=== PATIENT | male | born 1990 | race Two or more races ===

== ENCOUNTER 2022-05-22 19:52 | Emergency (ER) | payer MEDICAID, OTHER ==
[~2022-05-22] VITALS: Ht 180.3 cm; Wt 95.4 kg
[2022-05-22] MEDS ORDERED: SODIUM CHLORIDE 0.9% 1,000 ML IV ONE (20:30)
[2022-05-22 21:04] LABS: Basophils # (auto) 0.1 10 ^3/uL (0-0.2); Basophils % (auto) 0.6 % (0.0-2.0); Eosinophils # (auto) 0.2 10 ^3/uL (0-0.8); Eosinophils % (auto) 2.6 % (0.0-7.0); Hematocrit 47.7 % (41.0-53.0); Hemoglobin 15.9 g/dL (13.5-17.5); Lymphocytes % (auto) 32.8 % (10.0-50.0); Mean Corpuscular Hemoglobin 27.9 pg (28.0-32.0); Mean Corpuscular Hgb Conc. 33.2 g/dL (32.0-36.0); Mean Corpuscular Volume 83.9 fL (80.0-100.0); Monocytes # (auto) 0.6 10 ^3/uL (0-1.3); Neutrophils # (auto) 5.2 10 ^3/uL (1.6-8.6); Nucleated Red Blood Cells % 0.1 %; Red Blood Cells 5.69 10^6/uL (4.5-5.90); White Blood Cell 9.1 10^3/uL (4.4-10.8)
[2022-05-22 21:08] LABS: Urine Bacteria NONE SEEN /hpf (None Seen); Urine Blood Negative /uL (Negative); Urine Specific Gravity 1.033 (1.001-1.035); Urine WBC 12 /hpf (0 - 3)
[2022-05-22 21:23] LABS: Calcium 8.6 mg/dL (8.5-10.1); Potassium 3.9 mmol/L (3.5-5.1)
[2022-05-22 21:32] LABS: Bilirubin, Total 0.6 mg/dL (0.2-1.0); Total Protein 8.5 g/dL (6.4-8.2)
[2022-05-22] MEDS ORDERED: InsuLIN REG 1unit/0.01ml Soln (100units/ml) IV ONE (22:00)
[2022-05-22] MEDS ORDERED: KETO2CRE4 EX (23:06)
[2022-05-22] MEDS ORDERED: KETOCONAZOLE 2 % TOPICAL CREAM 15GM TOP ONE (23:15)
[2022-05-22 23:56] VITALS: BP 122/71
== END 2022-05-22 23:57 | disposition home or self-care (01) ==
LOC: EDBD 19:52 → ER 19:52
DX: B37.89 Other sites of candidiasis (principal); R42 Dizziness and giddiness; E11.9 Type 2 diabetes mellitus without complications
CPT/HCPCS: 36415; 36600; 80053; 81001; 82010; 82805; 82962; 85025; 96361; 96374; 99283; J1815; J7030